=== PATIENT | male | born 1990 ===

== ENCOUNTER 2017-11-23 10:48 | Emergency (ER) | payer BC ==
[2017-11-23 11:07] VITALS: O2SAT 99
--- NOTE | 2017-11-23 11:48 | C.PDOC ---
History Of Present Illness 26 year old male, whose PMHx includes Asthma, presents to the ED for evaluation of chest pain which began this morning. Patient states his pain is left-sided and midsternal pain which worsens with deep inspiration. Patient denies fever, chills, shortness of breath, cough. Patient reports family history of HTN, denies family history of cardiac disease. Denies history of smoking. (Lola Lainez) History Per: Patient History/Exam Limitations: no limitations Onset/Duration Of Symptoms: Hrs Current Symptoms Are (Timing): Still Present Quality: "Pain" Additional History Per: Patient Time Seen by Provider: 11/23/17 11:30 Chief Complaint (Nursing): Chest Pain Past Medical History Reviewed: Historical Data, Nursing Documentation, Vital Signs - Medical History PMH: Asthma Surgical History: No Surg Hx Family History: States: Hypertension - Social History Hx Tobacco Use: No Hx Alcohol Use: Yes Hx Substance Use: No - Immunization History Hx Tetanus Toxoid Vaccination: No Hx Influenza Vaccination: Yes (aug 2017) Hx Pneumococcal Vaccination: No Vital Signs: Last Vital Signs Temp 98.1 F 11/23/17 12:40 Pulse 81 11/23/17 12:40 Resp 16 11/23/17 12:40 BP 131/69 11/23/17 12:40 Pulse Ox 99 11/23/17 16:34 Review Of Systems Constitutional: Negative for: Fever, Chills Cardiovascular: Positive for: Chest Pain (left-sided, midsternal ) Respiratory: Negative for: Cough, Shortness of Breath Physical Exam - Physical Exam Appears: Non-toxic, No Acute Distress Skin: Normal Color, Warm, Dry Head: Atraumatic, Normacephalic Eye(s): bilateral: Normal Inspection Oral Mucosa: Moist Neck: Supple Chest: Symmetrical, No Deformity, No Tenderness Cardiovascular: Rhythm Regular, No Friction Rub, No Murmur, No JVD Respiratory: Normal Breath Sounds, No Rales, No Rhonchi, No Wheezing Extremity: Normal ROM, Capillary Refill (less than 2 seconds ) Neurological/Psych: Oriented x3, Normal Speech, Normal Cognition Gait: Steady ED Course And Treatment ECG: Interpreted By Me, Viewed By Me ECG Rhythm: Sinus Rhythm ECG Interpretation: No Acute Changes Interpretation Of ECG: NS at 81 bpm with normal sinus, no ST-T changes and early repolarization Rate From EC O2 Sat by Pulse Oximetry: 99 (on RA) Pulse Ox Interpretation: Normal - Other Rad CXR X-Ray: Interpreted by Me, Viewed By Me, Read By Radiologist Interpretation: HISTORY: COMPARISON: No prior. TECHNIQUE: Chest PA and lateral. FINDINGS: LINES AND TUBES: None. LUNG AND PLEURA: The lungs are well inflated and clear. HEART AND MEDIASTINUM: The heart is not enlarged. The hilar and mediastinal contours are within normal limits. SKELETAL STRUCTURES: The bony structures are within normal limits for the patient's age. VISUALIZED UPPER ABDOMEN: Normal. OTHER FINDINGS: None. IMPRESSION: No active pulmonary disease. Medical Decision Making Medical Decision Making: Impression: 26 year old male with left-sided and midsternal chest pain Plan: * CXR * reassess and disposition Progress: CXR ordered and reviewed. declined any medications no pain in ED. Patient with no significant PMH, family history or risk factors for ACS. Chest pain likely pleuritic. He remained well in no acute distress. Recommend rest and NSAID for pain. Can follow up outpatient with clinic or return to ED if the symptoms persist or worsen (Lola Lainez) Reviewed chart, no abd. exam documented, I was available for consult but did not see patient. I have reviewed note. (Kyle Phillips) Disposition Counseled Patient/Family Regarding: Studies Performed, Diagnosis, Need For Followup, Rx Given - Disposition Disposition Time: 12:00 - POA Present On Arrival: None - Disposition Referrals: [facility] [Outside] [facility] [Outside] [facility] [Outside] Disposition: HOME/ ROUTINE Condition: GOOD Additional Instructions: [place] EKG y radiografa de trax fueron normales Por favor, siga con la clnica para ms cuidados Meyer medicamentos diariamente para ayudar con cualquier inflamacin Meyer Tylenol o Motrin para cualquier dolor Prescriptions: Albuterol HFA [Ventolin HFA 90 mcg/actuation (8 g)] 1 puff IH Q4 #1 puff Prednisone [Deltasone] 40 mg PO DAILY 3 Days #6 tablet Instructions: Pleuritic Chest Pain (DC) Forms: [employer] (Italian) Print Language: URDU - Clinical Impression Clinical Impression: Pleuritic pain - 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 - Scribe Statement The provider has reviewed the documentation as recorded by the Scribe (Regina Ceron) - Scribe Statement All medical record entries made by the Scribe were at my direction and personally dictated by me. I have reviewed the chart and agree that the record accurately reflects my personal performance of the history, physical exam, medical decision making, and the department course for this patient. I have also personally directed, reviewed, and agree with the discharge instructions and disposition. (Lola Lainez)
[2017-11-23 13:22] VITALS: BP 131/69; PULSE 81; RESP 16; TEMP 98.1
== END 2017-11-23 13:00 | disposition home or self-care (01) ==
LOC: C.ER 10:48
DX: R07.81 Pleurodynia (principal); Z82.49 Family history of ischemic heart disease and other diseases of the circulatory system